=== PATIENT | female | born 1995 | race Two or more races ===

== ENCOUNTER 2023-10-20 02:35 | Observation (INO) | payer MEDICAID ==
[2023-10-20] MEDS: LACTATED RINGER'S 1,000 ML IV ONE (03:24)
== END 2023-10-20 04:46 | disposition home or self-care (01) ==
LOC: LDRP 02:35
PROVIDERS: ADMIT Obstetrics & Gynecology; ATTEND Obstetrics & Gynecology
DX: O99.891 Other specified diseases and conditions complicating pregnancy (principal); M54.50 Low back pain, unspecified; O26.893 Other specified pregnancy related conditions, third trimester; R51.9 Headache, unspecified; G04.81 Other encephalitis and encephalomyelitis; Z3A.34 34 weeks gestation of pregnancy
CPT/HCPCS: 59025; 81002; 94760; 96360; G0378

== ENCOUNTER → 2023-10-20 | Emergency (ER) | payer MEDICAID, OTHER ==
[~2023-10-20] VITALS: Ht 180.3 cm; Wt 118.2 kg
[2023-10-20 01:59] VITALS: BP 117/76; PULSE 135; RESP 18; O2SAT 99
== END | disposition left against medical advice (07) ==
LOC: ER 01:49 → LDRP 02:35 → UNDOADMOB 02:35
DX: O26.893 Other specified pregnancy related conditions, third trimester (principal); R51.9 Headache, unspecified; M54.9 Dorsalgia, unspecified; Z3A.35 35 weeks gestation of pregnancy; Z53.21 Procedure and treatment not carried out due to patient leaving prior to being seen by health care provider